=== PATIENT | female | born 1940 | race Two or more races ===

== ENCOUNTER 2022-10-06 05:44 | Day surgery (SDC) | payer OTHER ==
[~2022-10-06] VITALS: Ht 149.9 cm; Wt 61.7 kg
[~2022-10-06 05:44] MED LIST: COZAAR25 MG PO
== END 2022-10-06 11:40 | disposition home or self-care (01) ==
LOC: CIR.AMB 05:44
PROVIDERS: ATTEND Obstetrics & Gynecology
DX: N84.1 Polyp of cervix uteri (principal); N84.0 Polyp of corpus uteri; N95.0 Postmenopausal bleeding; Z20.822 Contact with and (suspected) exposure to COVID-19; E78.5 Hyperlipidemia, unspecified; I10 Essential (primary) hypertension

== ENCOUNTER 2025-01-30 09:00 | Day surgery (SDC) | payer OTHER ==
[2025-01-24 13:46] VITALS: BP 130/70
[~2025-01-30] VITALS: Ht 149.9 cm; Wt 61.2 kg
[~2025-01-30 09:00] MED LIST changes: +CRESTOR40 MG PO; +METFORMIN HCL500 M3 PO; +ZETIA10 MG PO
[2025-01-30] MEDS ORDERED: POVIDONE-IODINE 118 ML BOTT TOP ONE (11:14)
[2025-01-30] MEDS ORDERED: KETOROLAC TROMETHAMINE 15 MG VIAL IV STA (12:57)
[2025-01-30] MEDS ORDERED: KETOROLAC TROMETHAMINE 30 MG VIAL ONE (15:39)
[2025-01-30] MEDS ORDERED: KETOROLAC TROMETHAMINE 30 MG VIAL IV ONE (15:45)
== END 2025-01-30 18:05 | disposition home or self-care (01) ==
LOC: CIR.AMB 09:00
PROVIDERS: ATTEND Obstetrics & Gynecology
DX: N84.0 Polyp of corpus uteri (principal); N95.0 Postmenopausal bleeding